=== PATIENT | male | born 1990 | race Caucasian/White ===

== ENCOUNTER 2017-10-07 17:28 | Emergency (ER) | payer OTHER ==
[2017-10-07 17:54] LABS: Glucose,Whole Blood 104 mg/dL (75-99)
--- NOTE | 2017-10-07 19:27 | ED ---
General Adult HPI - General Chief complaint: Recheck/Abnormal Lab/Rx Stated complaint: Outpatient Mental Health Time Seen by Provider: 10/07/17 18:47 Source: patient, RN notes reviewed Mode of arrival: ambulatory Limitations: no limitations - History of Present Illness Initial comments: This is a 27-year-old male who presents to the emergency department with request for outpatient mental health referrals. Patient states that he was diagnosed with bipolar disorder in 2011. He states he was started on Celexa and Seroquel but felt like he had trouble waking up and was tired all the time. He states that for the past 3 years he has been self-medicating with marijuana and alcohol. Patient states over the past 4 weeks has become more anxious and his mom recommended that he come to the emergency department to receive resources to get prescriptions of proper medications. Patient denies any suicidal or homicidal ideation. He denies any auditory or visual hallucinations. Denies fever, chills, chest pain, shortness of breath, abdominal pain, nausea or vomiting, constipation or diarrhea, dysuria or hematuria, numbness or tingling, headache or vision changes. - Related Data Home Medications Medication Instructions Recorded Confirmed Acetaminophen Tab [Tylenol] 650 mg PO Q6H PRN 10/07/17 10/07/17 Ibuprofen [Motrin Ib] 600 mg PO Q6H PRN 10/07/17 10/07/17 Naproxen 500 mg PO DIRECTED PRN 10/07/17 10/07/17 Allergies Allergy/AdvReac Type Severity Reaction Status Date / Time DYED DETERGENT AdvReac Rash/Hives Uncoded 10/07/17 18:58 Review of Systems ROS Statement: Those systems with pertinent positive or pertinent negative responses have been documented in the HPI. ROS Other: All systems not noted in ROS Statement are negative. Past Medical History Past Medical History: No Reported History History of Any Multi-Drug Resistant Organisms: None Reported Past Surgical History: No Surgical Hx Reported Past Psychological History: Bipolar Smoking Status: Current every day smoker Past Alcohol Use History: Daily Past Drug Use History: Marijuana General Exam - General Exam Comments Initial Comments: General: Awake and alert, well-developed; in no apparent distress. Lying comfortably on ED stretcher. HEENT: Head atraumatic, normocephalic. Pupils are equal, round and reactive to light. Extraocular movements intact. Oropharynx moist without erythema or exudate. Neck: Supple. Normal ROM. Cardiovascular: Regular rate and rhythm. No murmurs, rubs or gallops. Chest symmetrical. Respiratory: Lungs clear to auscultation bilaterally. No wheezes, rales or rhonchi. Normal respiratory effort with no use of accessory muscles. Musculoskeletal: Normal ROM, no tenderness bilateral upper and lower extremities. Ambulating normally. Skin: [place], warm and dry without rashes or lesions. Neurological: Alert and oriented x3. CN II-XII grossly intact. Speech is fluent and answers are appropriate. No focal neuro deficits. Psychiatric: Normal mood and affect. No overt signs of depression or anxiety noted. Limitations: no limitations Course Vital Signs 10/07/17 17:45 Temperature 98.2 F Pulse Rate 77 Respiratory 16 Rate Blood Pressure 109/72 O2 Sat by Pulse 98 Oximetry Medical Decision Making - Medical Decision Making This is a 27-year-old male who presents to the emergency department with request for outpatient mental health referrals. Patient was diagnosed with bipolar disorder 6 years ago and has been self-medicating with alcohol and marijuana. Patient was provided with a list of outpatient mental health psychiatrists, [facility] and counselors. Patient will also be provided with a list of primary care providers. Vitals are stable and he is in no acute distress. He will be discharged home at this time. All questions answered. - Lab Data Lab Results 10/07/17 Range/Units 17:44 POC Glucose (mg/dL) 104 H (75-99) mg/dL POC Glu [employer] ID Ml Fair Disposition Clinical Impression: Needs assistance with community resources Disposition: HOME SELF-CARE Condition: Good Instructions: Bipolar Disorder (ED) Additional Instructions: Please follow [facility]. Contact information was provided. Please establish care with a primary care provider. Please follow up with primary care provider within 1-2 days. Return to emergency department if symptoms should worsen or any concerns arise. Is patient prescribed a controlled substance at d/c from ED?: No Referrals: None,Stated [Primary Care Provider] - 1-2 days Isha Urias MD [STAFF PHYSICIAN] - 1-2 days Tristan Cheney MD [REFERRING] - 1-2 days Alma Fontaine MD [REFERRING] - 1-2 days Ki Guerrero DO [Doctor of Osteopathic Medicine] - 1-2 days Time of Disposition: 19:26
[2017-10-07 19:58] VITALS: BP 108/78; PULSE 76; RESP 18; TEMP 98.4
== END 2017-10-07 19:40 | disposition home or self-care (01) ==
LOC: EC 17:28
DX: Z74.8 Other problems related to care provider dependency (principal); F41.9 Anxiety disorder, unspecified; F12.90 Cannabis use, unspecified, uncomplicated; F31.9 Bipolar disorder, unspecified; F17.200 Nicotine dependence, unspecified, uncomplicated; Z79.899 Other long term (current) drug therapy; Z91.048 Other nonmedicinal substance allergy status; Z72.89 Other problems related to lifestyle
CPT/HCPCS: 36415; 99283

== ENCOUNTER 2017-12-03 23:11 | Emergency (ER) | payer OTHER ==
[2017-12-03 23:22] VITALS: RESP 16
[2017-12-03] MEDS ORDERED: LORazepam 1 MG TAB PO STA (23:46)
--- NOTE | 2017-12-03 23:46 | ED ---
General Adult HPI - General Chief complaint: Psychiatric Symptoms Stated complaint: Mental health Time Seen by Provider: 12/03/17 23:29 Source: patient, RN notes reviewed Mode of arrival: ambulatory Limitations: no limitations - History of Present Illness Initial comments: Patient is a pleasant 27-year-old male presenting to the emergency department with bipolar. Patient states she was diagnosed with bipolar 2011. Patient states he was on medications at that time. Patient states he has not been on medication since then. Patient states he does agree with a diagnosis of bipolar and does get angry at times. Patient states people tell him he should be on medication. Patient states he is not sure that that is true and just feels that these people are ignorant. Patient does admit to recently smashing his phone because of being angry. Patient denies any suicidal or homicidal thoughts. Patient denies any alcohol today. Patient states he recently left rehab that he was therefore upper is including Adderall and amphetamine. No hallucinations. No physical complaints. Patient requests a list for shelters. - Related Data Home Medications Medication Instructions Recorded Confirmed Acetaminophen Tab [Tylenol] 650 mg PO Q6H PRN 10/07/17 10/07/17 Ibuprofen [Motrin Ib] 600 mg PO Q6H PRN 10/07/17 10/07/17 Naproxen 500 mg PO DIRECTED PRN 10/07/17 10/07/17 Allergies Allergy/AdvReac Type Severity Reaction Status Date / Time DYED DETERGENT AdvReac Rash/Hives Uncoded 12/03/17 23:22 Review of Systems ROS Statement: Those systems with pertinent positive or pertinent negative responses have been documented in the HPI. ROS Other: All systems not noted in ROS Statement are negative. Constitutional: Denies: fever Eyes: Denies: eye pain ENT: Denies: ear pain Respiratory: Denies: cough Cardiovascular: Denies: chest pain Endocrine: Denies: fatigue Gastrointestinal: Denies: abdominal pain Genitourinary: Denies: dysuria Musculoskeletal: Denies: back pain Skin: Denies: rash Neurological: Denies: headache Psychiatric: Denies: auditory hallucinations, visual hallucinations, homicidal thoughts, suicidal thoughts Past Medical History Past Medical History: No Reported History History of Any Multi-Drug Resistant Organisms: None Reported Past Surgical History: No Surgical Hx Reported Additional Past Surgical History / Comment(s): fx collar bone Past Psychological History: ADD/ADHD, Anxiety, Bipolar, Depression, PTSD Smoking Status: Current every day smoker Past Alcohol Use History: Daily Past Drug Use History: Marijuana General Exam Limitations: no limitations General appearance: alert, in no apparent distress Head exam: Present: atraumatic Eye exam: Present: normal appearance, PERRL ENT exam: Present: normal oropharynx Neck exam: Present: normal inspection Respiratory exam: Present: normal lung sounds bilaterally Cardiovascular Exam: Present: regular rate, normal rhythm GI/Abdominal exam: Present: soft. Absent: tenderness Extremities exam: Present: normal inspection Neurological exam: Present: alert Psychiatric exam: Present: normal affect, normal mood Skin exam: Present: normal color. Absent: rash Course Vital Signs 12/03/17 23:17 Temperature 98.3 F Pulse Rate 81 Respiratory 16 Rate Blood Pressure 114/70 O2 Sat by Pulse 98 Oximetry Medical Decision Making - Medical Decision Making Patient offered mental health evaluation however does not feel that he needs placement. Patient agrees that he does not need stat mental health evaluation. Patient again denies suicidal or homicidal thoughts, patient is not petition and came here on his own free will. Disposition Clinical Impression: Bipolar disorder Disposition: HOME SELF-CARE Condition: Stable Instructions: Bipolar Disorder (ED) Additional Instructions: Please follow-up with primary care physician and psychiatrist. Please follow- up with counselor. List provided for mental health services as well as shelters. Return for thoughts of harming self or others, worsening symptoms or other concerns. Is patient prescribed a controlled substance at d/c from ED?: No Referrals: Alf Tam MD [STAFF PHYSICIAN] - 1-2 days Tristan Cheney MD [REFERRING] - 1-2 days Time of Disposition: 23:44
[2017-12-04 00:08] VITALS: BP 112/68; PULSE 85; TEMP 98.2
== END 2017-12-04 00:07 | disposition home or self-care (01) ==
LOC: EC 23:11
DX: F31.9 Bipolar disorder, unspecified (principal); F17.200 Nicotine dependence, unspecified, uncomplicated; Z91.048 Other nonmedicinal substance allergy status
CPT/HCPCS: 99283

== ENCOUNTER 2017-12-08 22:35 | Emergency (ER) | payer OTHER ==
[2017-12-08 22:42] VITALS: BP 121/70; PULSE 90; RESP 16; TEMP 98.2
--- NOTE | 2017-12-08 23:53 | ED ---
Psych HPI - General Chief Complaint: Psychiatric Symptoms Stated Complaint: mental health Time Seen by Provider: 12/08/17 23:16 Source: patient, RN notes reviewed Mode of arrival: ambulatory Limitations: no limitations - History of Present Illness Initial Comments: This is a 27-year-old male who presents to the emergency department with request for housing resources. Patient states that he is bipolar. He states that he has a block [place] provided by the government that provides senior care services for him. Patient states that this evening he got in an argument with somebody at the bar. He states he came here because he has nowhere else to stay and needs resources. Denies suicidal or homicidal ideation. He states he takes no medications for his bipolar disorder. Denies any recent illnesses or infections.Denies fever, chills, chest pain, shortness of breath, abdominal pain , nausea or vomiting, constipation or diarrhea, dysuria or hematuria, numbness or tingling, headache or vision changes. - Related Data Home Medications Medication Instructions Recorded Confirmed Amoxicillin 500 mg PO BID 12/08/17 12/08/17 Fluticasone Propionate 1 spray NASAL BID 12/08/17 12/08/17 Ibuprofen 600 mg PO TID-W/MEALS PRN 12/08/17 12/08/17 Loratadine 10 mg PO DAILY 12/08/17 12/08/17 Nicotine 21Mg/24Hr Patch [Habitrol 1 patch TRANSDERM DAILY 12/08/17 12/08/17 21Mg/24Hr Patch] Ring Relief 1 drop BOTH EARS DAILY 12/08/17 Allergies Allergy/AdvReac Type Severity Reaction Status Date / Time azithromycin AdvReac Unknown Verified 12/08/17 23:35 Childhood DYED DETERGENT AdvReac Rash/Hives Uncoded 12/08/17 22:42 Review of Systems ROS Statement: Those systems with pertinent positive or pertinent negative responses have been documented in the HPI. ROS Other: All systems not noted in ROS Statement are negative. Past Medical History Past Medical History: No Reported History History of Any Multi-Drug Resistant Organisms: None Reported Past Surgical History: No Surgical Hx Reported Additional Past Surgical History / Comment(s): fx collar bone, Past Psychological History: ADD/ADHD, Anxiety, Bipolar, Depression, PTSD Smoking Status: Current every day smoker Past Alcohol Use History: Daily Past Drug Use History: Cocaine, Marijuana, Prescription Drug Abuse General Exam - General Exam Comments Initial Comments: General: Awake and alert, well-developed; in no apparent distress. HEENT: Head atraumatic, normocephalic. Pupils are equal, round and reactive to light. Extraocular movements intact. Oropharynx moist without erythema or exudate. Neck: Supple. Normal ROM. Cardiovascular: Regular rate and rhythm. No murmurs, rubs or gallops. Chest symmetrical. Respiratory: Lungs clear to auscultation bilaterally. No wheezes, rales or rhonchi. Normal respiratory effort with no use of accessory muscles. Musculoskeletal: Normal ROM, no tenderness bilateral upper and lower extremities. Ambulating normally. Skin: [place], warm and dry without rashes or lesions. Neurological: Alert and oriented x3. CN II-XII grossly intact. Speech is fluent and answers are appropriate. No focal neuro deficits. Psychiatric: Normal mood and affect. No overt signs of depression or anxiety noted. Limitations: no limitations Course Vital Signs 12/08/17 22:37 Temperature 98.2 F Pulse Rate 90 Respiratory 16 Rate Blood Pressure 121/70 O2 Sat by Pulse 99 Oximetry Medical Decision Making - Medical Decision Making This is a 27-year-old male who presents to the emergency department with request for housing resources. Patient states he is bipolar. He denies any suicidal or homicidal ideation. He states he has nowhere else to stay this evening and requests resources. Patient is provided with local senior care lists, drug and alcohol referrals and other community resources. Patient's vital signs have been stable and he is in no acute distress. He will be discharged home at this time. All questions have been answered. Disposition Clinical Impression: Needs assistance with community resources Disposition: HOME SELF-CARE Condition: Good Additional Instructions: Please follow up with primary care provider within 1-2 days. Return to emergency department if symptoms should worsen or any concerns arise. Is patient prescribed a controlled substance at d/c from ED?: No Referrals: None,Stated [Primary Care Provider] - 1-2 days Time of Disposition: 00:33
== END 2017-12-09 00:41 | disposition home or self-care (01) ==
LOC: EC 22:35
DX: Z59.9 Problem related to housing and economic circumstances, unspecified (principal); F31.9 Bipolar disorder, unspecified; F17.200 Nicotine dependence, unspecified, uncomplicated; Z88.1 Allergy status to other antibiotic agents; Z91.048 Other nonmedicinal substance allergy status; Z79.51 Long term (current) use of inhaled steroids; Z79.899 Other long term (current) drug therapy
CPT/HCPCS: 99283

== ENCOUNTER 2017-12-10 18:56 | Emergency (ER) | payer OTHER ==
--- NOTE | 2017-12-10 20:00 | ED ---
General Adult HPI - General Source: patient, RN notes reviewed Mode of arrival: ambulatory Limitations: no limitations <Giuliano Banegas - Last Filed: 12/10/17 19:58> <Abisai Bergeron - Last Filed: 12/10/17 23:15> - General Chief complaint: Psychiatric Symptoms Stated complaint: Bipolar Time Seen by Provider: 12/10/17 19:28 - History of Present Illness Initial comments: Patient is a 27-year-old male presenting to the emergency department for bipolar problems. Patient is upset that he has no place to live. Patient states he came to the hospital to call [facility] houses to find some place to stay. Patient was asked if he wanted to talk to the nurse and he said yes. Patient denies suicidal thoughts. Patient denies homicidal thoughts. Patient does admit to having anger problems however states she does not actually want to kill anybody. Patient is not currently on any medications. Patient does have an appointment to see a psychiatrist on the . No hallucinations. Patient does rarely smoke and rarely drinks alcohol, none today. Patient was recently in rehab for amphetamine use. No physical complaints (Giuliano Banegas) - Related Data Home Medications Medication Instructions Recorded Confirmed Amoxicillin 500 mg PO BID 12/08/17 12/10/17 Fluticasone Propionate 1 spray NASAL BID 12/08/17 12/10/17 Ibuprofen 600 mg PO TID-W/MEALS PRN 12/08/17 12/10/17 Loratadine 10 mg PO DAILY 12/08/17 12/10/17 Nicotine 21Mg/24Hr Patch [Habitrol 1 patch TRANSDERM DAILY 12/08/17 12/10/17 21Mg/24Hr Patch] Ring Relief 1 drop BOTH EARS DAILY 12/08/17 12/10/17 Allergies Allergy/AdvReac Type Severity Reaction Status Date / Time azithromycin AdvReac Unknown Verified 12/10/17 19:37 Childhood DYED DETERGENT AdvReac Rash/Hives Uncoded 12/08/17 22:42 Review of Systems ROS Other: All systems not noted in ROS Statement are negative. Constitutional: Denies: fever Eyes: Denies: eye pain ENT: Denies: ear pain Respiratory: Denies: cough Cardiovascular: Denies: chest pain Endocrine: Denies: fatigue Gastrointestinal: Denies: abdominal pain Genitourinary: Denies: dysuria Musculoskeletal: Denies: back pain Skin: Denies: rash Neurological: Denies: weakness <Giuliano Banegas - Last Filed: 12/10/17 19:58> ROS Other: All systems not noted in ROS Statement are negative. <Abisai Bergeron - Last Filed: 12/10/17 23:15> ROS Statement: Those systems with pertinent positive or pertinent negative responses have been documented in the HPI. Past Medical History Past Medical History: No Reported History History of Any Multi-Drug Resistant Organisms: None Reported Past Surgical History: No Surgical Hx Reported Additional Past Surgical History / Comment(s): fx collar bone, Past Psychological History: ADD/ADHD, Anxiety, Bipolar, Depression, PTSD Smoking Status: Current every day smoker Past Alcohol Use History: Daily Past Drug Use History: Cocaine, Marijuana, Prescription Drug Abuse <Giuliano Banegas - Last Filed: 12/10/17 19:58> General Exam Limitations: no limitations General appearance: alert, in no apparent distress Head exam: Present: atraumatic Eye exam: Present: normal appearance Neck exam: Present: normal inspection Respiratory exam: Present: normal lung sounds bilaterally Cardiovascular Exam: Present: regular rate, normal rhythm GI/Abdominal exam: Present: soft. Absent: tenderness Extremities exam: Present: normal inspection Neurological exam: Present: alert Psychiatric exam: Present: normal affect, normal mood Skin exam: Present: normal color <Giuliano Banegas - Last Filed: 12/10/17 19:58> Medical Decision Making <Giuliano Banegas - Last Filed: 12/10/17 19:58> <Abisai Bergeron - Last Filed: 12/10/17 23:15> - Medical Decision Making Receive this patient has a sign out, pending his behavioral health evaluation. He has been seen and is stable to continue outpatient treatment. He is scotty for safety. (Abisai Bergeron) - Lab Data Lab Results 12/10/17 Range/Units 20:33 Urine Opiates Screen Not Detected (NotDetected) Ur Oxycodone Screen Not Detected (NotDetected) Urine Methadone Screen Not Detected (NotDetected) Ur Propoxyphene Screen Not Detected (NotDetected) Ur Barbiturates Screen Not Detected (NotDetected) U Tricyclic Antidepress Not Detected (NotDetected) Ur Phencyclidine Scrn Not Detected (NotDetected) Ur Amphetamines Screen Not Detected (NotDetected) U Methamphetamines Scrn Not Detected (NotDetected) U Benzodiazepines Scrn Not Detected (NotDetected) Urine Cocaine Screen Not Detected (NotDetected) U Marijuana (THC) Screen Detected H (NotDetected) Disposition <Giuliano Banegas - Last Filed: 12/10/17 19:58> Is patient prescribed a controlled substance at d/c from ED?: No <Abisai Bergeron - Last Filed: 12/10/17 23:15> Clinical Impression: Bipolar disorder, Needs assistance with community resources Disposition: HOME SELF-CARE Condition: Fair Instructions: Mood Disorders (ED) Referrals: None,Stated [Primary Care Provider] - 1-2 days
[2017-12-10 21:01] LABS: Amphetamine Screen,Urine Not Detected (NotDetected); Barbiturate Screen,Urine Not Detected (NotDetected); Benzodiazepines Screen,Urine Not Detected (NotDetected); Cocaine Screen,Urine Not Detected (NotDetected); Methadone Screen, Urine Not Detected (NotDetected); Opiate Screen,Urine Not Detected (NotDetected); Oxycodone Screen, Urine Not Detected (NotDetected); Phencyclidine Screen,Urine Not Detected (NotDetected); Tricyclic Antidepressant,Urine Not Detected (NotDetected); Urn Cannabinoid Scrn Detected (NotDetected)
== END 2017-12-10 23:25 | disposition home or self-care (01) ==
LOC: EC 18:56
DX: F31.9 Bipolar disorder, unspecified (principal); F17.200 Nicotine dependence, unspecified, uncomplicated; Z79.899 Other long term (current) drug therapy; Z88.1 Allergy status to other antibiotic agents; Z91.048 Other nonmedicinal substance allergy status
CPT/HCPCS: 80306; 82075; 99284

== ENCOUNTER 2017-12-11 22:10 | Emergency (ER) | payer OTHER ==
[2017-12-11 22:15] VITALS: RESP 18; TEMP 98
[2017-12-11] MEDS ORDERED: ACETAMINOPHEN TAB 325 MG TAB PO STA (23:09)
[2017-12-11] MEDS ORDERED: IBUPROFEN 600 MG TAB PO STA (23:09)
--- NOTE | 2017-12-11 23:16 | ED ---
Psych HPI - General Source: patient Mode of arrival: ambulatory <Kath Martinez - Last Filed: 12/12/17 03:04> <Cielo Quintanilla - Last Filed: 12/12/17 05:10> - General Chief Complaint: Psychiatric Symptoms Stated Complaint: mental health Time Seen by Provider: 12/11/17 22:18 - History of Present Illness Initial Comments: 27-year-old male patient presents to the emergency department today with complaints of mood swings. Patient states she is expressing a lot of depression and then switches to appearing anger with little provocation. Patient states he was diagnosed with bipolar disorder in 2011. States he was started on medication 2011 but hasn't taken anything since. Patient states he has been self-medicating with street drugs. States he recently went through rehab approximately 50 days ago. Patient states that now things are getting worse and he is not using drugs. States that he has used marijuana and alcohol in the last couple days. He denies any harder street drugs. States he is not suicidal or homicidal. States he does feel like he wants to "beat the shit out of people" but he doesn't want to kill them. Denies any current physical symptoms or concerns. Patient denies any recent rash, fever, chills, shortness breath, chest pain, abdominal pain, nausea, vomiting, diarrhea, constipation, back pain, numbness, tingling, dizziness, weakness, hematuria, dysuria, urinary urgency, urinary frequency, headache, visual changes, or any other complaints. (Kath Martinez) - Related Data Home Medications Medication Instructions Recorded Confirmed Fluticasone Propionate 1 spray NASAL BID 12/08/17 12/11/17 Ibuprofen 600 mg PO TID-W/MEALS PRN 12/08/17 12/11/17 Loratadine 10 mg PO DAILY 12/08/17 12/11/17 Multivitamins, Thera [Multivitamin 1 tab PO DAILY 12/11/17 12/11/17 (formulary)] Allergies Allergy/AdvReac Type Severity Reaction Status Date / Time azithromycin AdvReac Unknown Verified 12/11/17 22:29 Childhood DYED DETERGENT AdvReac Rash/Hives Uncoded 12/11/17 22:15 Review of Systems ROS Other: All systems not noted in ROS Statement are negative. <Kath Martinez - Last Filed: 12/12/17 03:04> ROS Other: All systems not noted in ROS Statement are negative. <DwightCielo P - Last Filed: 12/12/17 05:10> ROS Statement: Those systems with pertinent positive or pertinent negative responses have been documented in the HPI. Past Medical History Past Medical History: No Reported History History of Any Multi-Drug Resistant Organisms: None Reported Past Surgical History: No Surgical Hx Reported Additional Past Surgical History / Comment(s): fx collar bone, Past Psychological History: ADD/ADHD, Anxiety, Bipolar, Depression, PTSD Smoking Status: Current every day smoker Past Alcohol Use History: Daily Past Drug Use History: Cocaine, Marijuana, Prescription Drug Abuse <Kath Martinez - Last Filed: 12/12/17 03:04> General Exam Limitations: no limitations General appearance: alert, in no apparent distress, other (This is a well- developed, well-nourished adult male patient in no acute distress. Vital signs upon presentation are temperature 98.2F, pulse 85, respirations 18, blood pressure 128/76, pulse ox 98% on room air.) Eye exam: Present: normal appearance, PERRL, EOMI. Absent: scleral icterus, conjunctival injection, periorbital swelling ENT exam: Present: normal exam, normal oropharynx, mucous membranes moist Respiratory exam: Present: normal lung sounds bilaterally. Absent: respiratory distress, wheezes, rales, rhonchi, stridor Cardiovascular Exam: Present: regular rate, normal rhythm, normal heart sounds. Absent: systolic murmur, diastolic murmur, rubs, gallop, clicks GI/Abdominal exam: Present: soft, normal bowel sounds. Absent: distended, tenderness, guarding, rebound, rigid Neurological exam: Present: alert, oriented X3, CN II-XII intact Psychiatric exam: Present: normal affect, normal mood. Absent: homicidal ideation, suicidal ideation Skin exam: Present: warm, dry, intact, normal color. Absent: rash <Kath Martinez - Last Filed: 12/12/17 03:04> Vital Signs 12/11/17 12/12/17 22:11 00:44 Temperature 98 F 98 F Pulse Rate 85 70 Respiratory 18 18 Rate Blood Pressure 128/76 111/61 O2 Sat by Pulse 98 98 Oximetry Medical Decision Making <Kath Martinez - Last Filed: 12/12/17 03:04> <Cielo Quintanilla - Last Filed: 12/12/17 05:10> - Medical Decision Making 27-year-old male patient presented to the emergency department today requesting psychiatric evaluation for mood swings. Patient denied suicidal or homicidal ideation. Physical exam is unremarkable. Patient was seen and evaluated by emergency psychiatric services. It was felt that he does not meet inpatient criteria at this time will be safe for discharge. He was given outpatient follow-up information for pending sale to [facility] as well as the [facility]. He is instructed to follow-up as soon as possible. Return parameters were discussed in detail. He verbalizes understanding and agrees with this plan. (Kath Martinez) I was available for consultation in the emergency department. The history and physical exam were done by the midlevel provider. I was consulted for this patient's care. I reviewed the case with the midlevel provider and based on their presentation of the patient, I agree with the assessment, medical decision making and plan of care as documented. (Cielo Quintanilla) Disposition Is patient prescribed a controlled substance at d/c from ED?: No Time of Disposition: 00:33 <Kath Martinez - Last Filed: 12/12/17 03:04> <Cielo Quintanilla - Last Filed: 12/12/17 05:10> Clinical Impression: Mood swings, History of bipolar disorder Disposition: HOME SELF-CARE Condition: Good Instructions: Mood Disorders (ED) Additional Instructions: Follow-up with pending sale to [facility] for further evaluation and psychiatry appointment for medication evaluation. Return immediately for any new, worsening, or concerning symptoms. Referrals: Tristan Cheney MD [REFERRING] - 1-2 days [facility],Swati Cates [NON-STAFF] - 1-2 days
[2017-12-12 00:45] VITALS: BP 111/61; PULSE 70
== END 2017-12-12 00:44 | disposition home or self-care (01) ==
LOC: EC 22:10
DX: F39 Unspecified mood [affective] disorder (principal); F31.9 Bipolar disorder, unspecified; F17.200 Nicotine dependence, unspecified, uncomplicated; Z79.51 Long term (current) use of inhaled steroids; Z79.899 Other long term (current) drug therapy; Z88.1 Allergy status to other antibiotic agents; Z91.09 Other allergy status, other than to drugs and biological substances
CPT/HCPCS: 82075; 99284

== ENCOUNTER 2018-02-25 22:12 | Emergency (ER) | payer OTHER ==
--- NOTE | 2018-02-25 22:40 | ED ---
Psych HPI - General Chief Complaint: Psychiatric Symptoms Stated Complaint: Mental health Time Seen by Provider: 02/25/18 22:40 Source: patient Mode of arrival: ambulatory - History of Present Illness Initial Comments: Song is a 27-year-old male who was recently diagnosed with depression, he was admitted to inpatient psychiatry during late December, he was discharged home on 2 medications. Patient reports that he failed to follow up with [facility] therefore has not gotten his medications refilled. Patient reports that he ran out of his medications 5 days ago now feels that he is withdrawing. Patient reports feeling very agitated and uncomfortable. He states that he has contacted [facility] and has a outpatient follow-up appointment tomorrow, but he couldn 't sleep tonight so he came to the ER for evaluation. - Related Data Home Medications Medication Instructions Recorded Confirmed Fluticasone Propionate 2 spray EA NOSTRIL DAILY 12/08/17 02/25/18 Loratadine 10 mg PO DAILY 12/08/17 02/25/18 Benztropine Mesylate [Cogentin] 1 mg PO BID 02/25/18 02/25/18 Divalproex ER [Depakote ER] 500 mg PO BID 02/25/18 02/25/18 Ibuprofen [Motrin Ib] 200 - 400 mg PO Q6H PRN 02/25/18 02/25/18 busPIRone HCl [Buspar] 10 mg PO BID 02/25/18 02/25/18 Allergies Allergy/AdvReac Type Severity Reaction Status Date / Time azithromycin AdvReac Unknown Verified 02/25/18 23:04 Childhood DYED DETERGENT AdvReac Rash/Hives Uncoded 02/25/18 22:31 Review of Systems ROS Statement: Those systems with pertinent positive or pertinent negative responses have been documented in the HPI. ROS Other: All systems not noted in ROS Statement are negative. Past Medical History Past Medical History: No Reported History History of Any Multi-Drug Resistant Organisms: None Reported Past Surgical History: No Surgical Hx Reported Additional Past Surgical History / Comment(s): fx collar bone, Past Psychological History: ADD/ADHD, Anxiety, Bipolar, Depression, PTSD Smoking Status: Current every day smoker Past Alcohol Use History: Daily Past Drug Use History: Cocaine, Marijuana, Prescription Drug Abuse General Exam - General Exam Comments Initial Comments: Physical Exam GENERAL: Patient is well-developed and well-nourished. Patient is nontoxic and well- hydrated and is in no distress. HENT: Normocephalic, Atraumatic. EYES: PERRL, EOMI PULMONARY: Unlabored respirations. No audible rales rhonchi or wheezing was noted. CARDIOVASCULAR: There is a regular rate and rhythm without any murmurs gallops or rubs. ABDOMEN: Soft and nontender with normal bowel sounds. SKIN: Skin is clear with no lesions or rashes and otherwise unremarkable. : Deferred NEUROLOGIC: Patient is alert and oriented x3. Moving all extremities spontaneously MUSCULOSKELETAL: Normal extremities with adequate strength and full range of motion. No lower extremity swelling or edema. No calf tenderness. PSYCHIATRIC: Normal psychiatric evaluation. Limitations: no limitations Limitations: no limitations Course Vital Signs 02/25/18 22:27 Temperature 98.1 F Pulse Rate 83 Respiratory 16 Rate Blood Pressure 142/78 O2 Sat by Pulse 98 Oximetry Medical Decision Making - Medical Decision Making The patient was seen and evaluated history was obtained from the patient Patient currently out of his psychiatric meds, feels agitated feels like he was withdrawing from patient has follow-up tomorrow [facility] Patient's home meds were ordered Patient evaluated by [facility] agrees with plan for discharge home, patient to see his counselor tomorrow - Lab Data Lab Results 02/26/18 Range/Units 00:45 Urine Opiates Screen Not Detected (NotDetected) Ur Oxycodone Screen Not Detected (NotDetected) Urine Methadone Screen Not Detected (NotDetected) Ur Propoxyphene Screen Not Detected (NotDetected) Ur Barbiturates Screen Not Detected (NotDetected) U Tricyclic Antidepress Not Detected (NotDetected) Ur Phencyclidine Scrn Not Detected (NotDetected) Ur Amphetamines Screen Not Detected (NotDetected) U Methamphetamines Scrn Not Detected (NotDetected) U Benzodiazepines Scrn Not Detected (NotDetected) Urine Cocaine Screen Not Detected (NotDetected) U Marijuana (THC) Screen Detected H (NotDetected) Disposition Clinical Impression: Depression Disposition: HOME SELF-CARE Condition: Good Instructions: Depression (ED) Is patient prescribed a controlled substance at d/c from ED?: No Referrals: None,Stated [Primary Care Provider] - 1-2 days Time of Disposition: 02:33
[2018-02-25] MEDS ORDERED: DIVALPROEX ER 500 MG TAB.ER.24H PO SCH (23:30)
[2018-02-25] MEDS ORDERED: busPIRone HCl 10 MG TAB PO SCH (23:30)
[2018-02-26 01:09] LABS: Amphetamine Screen,Urine Not Detected (NotDetected); Barbiturate Screen,Urine Not Detected (NotDetected); Benzodiazepines Screen,Urine Not Detected (NotDetected); Cocaine Screen,Urine Not Detected (NotDetected); Methadone Screen, Urine Not Detected (NotDetected); Opiate Screen,Urine Not Detected (NotDetected); Oxycodone Screen, Urine Not Detected (NotDetected); Phencyclidine Screen,Urine Not Detected (NotDetected); Tricyclic Antidepressant,Urine Not Detected (NotDetected); Urn Cannabinoid Scrn Detected (NotDetected)
[2018-02-26 03:13] VITALS: BP 127/67; PULSE 67; RESP 18; TEMP 97
== END 2018-02-26 03:13 | disposition home or self-care (01) ==
LOC: EC 22:12
DX: F31.9 Bipolar disorder, unspecified (principal); Z76.0 Encounter for issue of repeat prescription; F41.9 Anxiety disorder, unspecified; F17.200 Nicotine dependence, unspecified, uncomplicated; Z79.51 Long term (current) use of inhaled steroids; Z79.899 Other long term (current) drug therapy; Z88.1 Allergy status to other antibiotic agents; Z91.048 Other nonmedicinal substance allergy status
CPT/HCPCS: 80306; 82075; 99284